=== PATIENT | male | born 1950 | race Hispanic/Latino ===

== ENCOUNTER 2018-07-13 10:22 | Emergency (ER) | payer MEDICARE, OTHER ==
[2018-07-13 10:48] VITALS: BP 151/68; PULSE 61; TEMP 98; O2SAT 98
[2018-07-13 10:49] VITALS: BMI 32.1
[2018-07-13] MEDS ORDERED: Oxycodone/Acetaminophen 5/325 mg Tab PO STA (11:43)
--- NOTE | 2018-07-13 11:46 | ED PDOC ---
HPI: Back Time Seen by Provider: 07/13/18 11:44 Chief Complaint (Nursing): Back Pain Chief Complaint (Provider): back pain History Per: Patient (68 y/o male h/o DVT/colon ca/HTN/ ongoing back pain x 20 years here with lower back pain that began this morning upon awakening. No falls noted. Did not take any pain medication. States he is here visiting son and usually sees physician in [place]. Has had xry last year. No MRI evaluation of spine. No complaint of urinary retention.) Past Medical History Reviewed: Historical Data, Nursing Documentation, Vital Signs Vital Signs: Last Vital Signs Temp 98 F 07/13/18 10:47 Pulse 61 07/13/18 10:47 Resp BP 151/68 H 07/13/18 10:47 Pulse Ox 98 07/13/18 10:47 - Medical History PMH: HTN, Hypothyroidism, Post Traumatic Stress Disorder Denies: Chronic Kidney Disease - Family History Family History: States: No Known Family Hx - Home Medications Home Medications: Ambulatory Orders Medication Instructions Recorded Cyclobenzaprine [Cyclobenzaprine 10 mg PO BID #14 tab 05/28/15 HCl] Oxycodone HCl/Acetaminophen 1 tab PO Q6 PRN #6 tab 05/28/15 [Percocet 325 mg-5 mg] diaZEpam [Valium] 5 mg PO Q8 PRN #8 tab 07/13/18 - Allergies Allergies/Adverse Reactions: Allergies Allergy/AdvReac Type Severity Reaction Status Date / Time No Known Allergies Allergy Verified 05/28/15 10:29 Review of Systems ROS Statement: Except As Marked, All Systems Reviewed And Found Negative Physical Exam - Reviewed Nursing Documentation Reviewed: Yes Vital Signs Reviewed: Yes - Physical Exam Appears: Positive for: Well, Non-toxic, No Acute Distress Head Exam: Positive for: ATRAUMATIC, NORMAL INSPECTION, NORMOCEPHALIC Skin: Positive for: Normal Color, Warm, DRY Eye Exam: Positive for: EOMI, Normal appearance, PERRL ENT: Positive for: Normal ENT Inspection Neck: Positive for: Normal, Painless ROM Cardiovascular/Chest: Positive for: Regular Rate, Rhythm Respiratory: Positive for: CNT, Normal Breath Sounds Gastrointestinal/Abdominal: Positive for: Normal Exam, Soft Back: Positive for: Normal Inspection, Other (mild paralumbar tenderness noted. No focal bony tenderness.) Extremity: Positive for: Normal ROM Neurologic/Psych: Positive for: Alert, Oriented - ECG O2 Sat by Pulse Oximetry: 98 - Progress ED Course And Treament: Percocet 5/325 mg x 2 doses XRY OF LS PINE IMPRESSION: No significant or acute findings to account for/ related to the clinical presentation. Disposition - Clinical Impression Clinical Impression: Back pain - Patient ED Disposition Is Patient to be Admitted: No - Disposition Disposition: Routine/Home Disposition Time: 12:26 Condition: FAIR Prescriptions: diaZEpam [Valium] 5 mg PO Q8 PRN #8 tab PRN Reason: Muscle Spasm Instructions: Low Back Pain in Adults
[2018-07-13] MEDS ORDERED: Oxycodone/Acetaminophen 5/325 mg Tab ONE (12:00)
--- NOTE | 2018-07-13 13:59 | RAD ---
Date of service: 07/13/2018 PROCEDURE: Radiographs of the Lumbar Spine. HISTORY: Back Pain. No history of recent/ related trauma provided COMPARISON: No prior. FINDINGS: BONES: Normal alignment. No listhesis. No fracture. DISC SPACES: Unremarkable. OTHER FINDINGS: None. IMPRESSION: No significant or acute findings to account for/ related to the clinical presentation.
== END 2018-07-13 12:43 | disposition home or self-care (01) ==
LOC: H.ER 10:22
DX: M54.9 Dorsalgia, unspecified (principal); E03.9 Hypothyroidism, unspecified; F43.10 Post-traumatic stress disorder, unspecified; I10 Essential (primary) hypertension; Z85.038 Personal history of other malignant neoplasm of large intestine; Z86.718 Personal history of other venous thrombosis and embolism